=== PATIENT | female | born 1995 | race Caucasian/White ===

== ENCOUNTER 2017-10-27 10:28 | Emergency (ER) | payer OTHER ==
[2017-10-27] MEDS ORDERED: Lidocaine 1%* 5 ML VIAL INJ ONE (10:49)
[2017-10-27] MEDS ORDERED: Tetan/Diph/Pertus SYR(Tdap)* 0.5 ML SYR(BOOSTRIX) use SYR IM ONE (10:53)
--- NOTE | 2017-10-27 10:56 | UC ---
Laceration HPI - HPI Summary HPI Summary: 22-year-old female presents with laceration to her left index finger. Occurred approximately 2 hours ago while cutting a watermelon with a knife. Bleeding was controlled with direct pressure. Has full range of motion to that finger. Sensation is intact distally. Last tetanus was in 2007. - History Of Current Complaint Stated Complaint: FINGER LAC Time Seen by Provider: 10/27/17 10:40 Hx Obtained From: Patient Laceration Location: Hand - Left index finger Mechanism Of Injury: Sharp Trauma Aggravating Factors: Nothing Related History: Dominant Hand Right - Allergies/Home Medications Allergies/Adverse Reactions: Allergies Allergy/AdvReac Type Severity Reaction Status Date / Time No Known Allergies Allergy Verified 10/27/17 10:54 Home Medications: Home Medications Acyclovir* [Zovirax 200 MG CAP*] 200 mg PO BID 10/27/17 [History Confirmed 10/27] PMH/Surg Hx/FS Hx/Imm Hx - Additional Past Medical History Additional PMH: Noncontributory Previously Healthy: Yes - Surgical History Surgical History: None - Family History Family History: Noncontributory - Social History Occupation: Student Lives: Dormitory/Roommates Review of Systems Constitutional: Negative Skin: Other - See history of present illness. Motor: Negative Neurovascular: Negative Musculoskeletal: Negative Is Patient Immunocompromised?: No All Other Systems Reviewed And Are Negative: Yes Physical Exam Triage Information Reviewed: Yes Appearance: Well-Appearing, No Pain Distress, Well-Nourished Vital Signs Reviewed: Yes Respiratory: Positive: No respiratory distress Cardiovascular: Positive: Pulses Normal, Brisk Capillary Refill Musculoskeletal: Positive: Strength Intact, ROM Intact - Flexion and extension of the left index finger intact to resistance. Neurological: Positive: Alert, Other: - Sensation intact distally. Skin: Positive: significant lesion(s) - C-shaped superficial flap laceration to radial aspect of left index finger at the PIP. Laceration Repair - Laceration Repair 1 Procedure Summary: Procedure note: Laceration repair left index finger. Informed consent was obtained before the procedure started. The appropriate time out was taken. The area was prepped and draped in usual sterile fashion. Local anesthesia was achieved using 1.5 mL of lidocaine 1% without epinephrine. The wound was copiously irrigated. The wound margins were brought into alignment. A total of 7 interrupted sutures using 5-0 Ethilon were placed. Estimated blood loss was less than 1 mm. A dressing was applied to the area and anticipatory guidance as well as standard post procedure care was explained. Return precautions are given. Patient tolerated the procedure well without complications. She is to return in 10 days for evaluation and removal of the sutures. Description: Linear - C-shaped flap laceration Laceration Size After Repair: Length (cm) - 2 Type Injection: Local Anesthesia Used: 1.0% Lido - 1.5 mL Cleansing Completed Via Routine Prep: Yes Irrigation With Pressure Irrigation Device: Yes Closure Material: Sutures - 7 interrupted sutures Closure Method: Single Layer Suture Of: Skin Suture Type: Nylon - 5-0 Ethilon Laceration Course/Dx - Course/Dx Course Of Treatment: 22-year-old female presents with a C-shaped flap laceration to the radial aspect of her left index finger adjacent to the PIP. She had full flexion and extension of that finger to resistance and sensation was intact distally. Laceration was repaired with a total of 7 interrupted sutures using 5-0 Ethilon. Wound care and warning signs of infection were discussed with the patient. She verbalizes understanding. She is to return in 10 days for laceration evaluation and suture removal. - Differential Dx - Laceration/Wound Provider Diagnoses: 2 cm laceration left index finger Discharge - Sign-Out/Discharge Documenting (check all that apply): Patient Departure All imaging exams completed and their final reports reviewed: No Studies - Discharge Plan Condition: Stable Disposition: HOME Patient Education Materials: Care For Your Stitches (ED), Finger Laceration (ED ) Referrals: No Primary Care Phys,NOPCP [Primary Care Provider] - Additional Instructions: Keep current dressing in place for the next 24 hours. Avoid getting this wet. If there is bleeding through the dressing simply add some additional gauze. After 24 hours you may remove the dressing and shower and wash her hands is normal. The wound should be cleansed gently at least once a day using soap and water. Apply a small amount of antibiotic ointment and cover with a dressing. The numbing medication used to repair your wound today will wear off in about 3- 4 hours. You may use [id number] acetaminophen (Tylenol) or ibuprofen ( Advil, Motrin) according to directions as needed for pain. He should return in 10 days to have the sutures removed. Watch for signs and symptoms of infection including a fever greater than 100.5 F, pain that is not managed with [id number] pain medication, redness that spreads, swelling of the finger, loss of function of the finger, or any pus draining from the wound. You need to seek immediate medical attention should any of these things occur. - Billing Disposition and Condition Condition: STABLE Disposition: Home
== END 2017-10-27 11:45 | disposition home or self-care (01) ==
LOC: UCEAST 10:28
DX: S61.211A Laceration without foreign body of left index finger without damage to nail, initial encounter (principal); W26.0XXA Contact with knife, initial encounter; Y93.89 Activity, other specified; Y92.9 Unspecified place or not applicable
CPT/HCPCS: 12001; 90715; 99201; G0463

== ENCOUNTER 2017-11-09 18:31 | Emergency (ER) | payer OTHER ==
[2017-11-09 18:56] VITALS: BP 100/51
--- NOTE | 2017-11-09 19:35 | UC ---
HPI Wound/Suture Re-check - HPI Summary HPI Summary: 22 y/o female presents to the urgent care requesting suture removal from left index finger s/p laceration repair on 10/27/2017. Pt denies any sign of infection. Pt can move finger w/o any difficulty. Pt denies fever, SOB, chest pain, abdominal pain, N/V/D - History Of Current Complaint Chief Complaint: UCSkin Stated Complaint: SUTURE REMOVAL Time Seen by Provider: 11/09/17 19:34 Hx Obtained From: Patient Hx Last Menstrual Period: 10/18/2017 Onset/Duration: Sudden Onset, Lasting Weeks - 2 weeks, Resolved Pain Intensity: 0 Pain Scale Used: 0-10 Numeric - Allergies/Home Medications Allergies/Adverse Reactions: Allergies Allergy/AdvReac Type Severity Reaction Status Date / Time No Known Allergies Allergy Verified 10/27/17 10:54 Home Medications: Home Medications Norethindrone-E.estradiol-Iron [Tri-Legest Fe-28 Day Tablet] 11/09/17 [History] PMH/Surg Hx/FS Hx/Imm Hx Previously Healthy: Yes - Surgical History Surgical History: None Surgery Procedure, Year, and Place: wisdom teeth - Family History Family History: Noncontributory - Social History Alcohol Use: Occasionally Substance Use Type: None Smoking Status (MU): Never Smoked Tobacco Review of Systems Constitutional: Negative Skin: Other - left index finger w/ 7 sutures s/p laceration repair Eyes: Negative ENT: Negative Respiratory: Negative Cardiovascular: Negative Gastrointestinal: Negative Genitourinary: Negative Motor: Negative Neurovascular: Negative Musculoskeletal: Negative Neurological: Negative Psychological: Negative Is Patient Immunocompromised?: No All Other Systems Reviewed And Are Negative: Yes Physical Exam - Summary Physical Exam Summary: Vital Signs Reviewed: Yes General: well developed, well nourished female sitting in the examining table w/ o any apparent distress Eye Exam: Normal Eyes: Positive: Conjunctiva Clear - PERRLA, EOMI, fundi grossly normal ENT: Positive: Normal ENT inspection, Hearing grossly normal, Pharynx normal, TMs normal Neck: Positive: Supple, Nontender, No Lymphadenopathy Respiratory: Positive: Chest non-tender, Lungs clear, Normal breath sounds, No respiratory distress Cardiovascular: Positive: RRR, No Murmur, Pulses Normal, Brisk Capillary Refill Abdomen Description: Positive: Nontender, No Organomegaly, Soft. Negative: CVA Tenderness (R), CVA Tenderness (L) Bowel Sounds: Positive: Present Musculoskeletal: Positive: Strength Intact, ROM Intact, No Edema Neurological: Positive: Alert, Muscle Tone Normal Psychological Exam: Normal Skin: Positive:left index finger medial aspect w/ [address], no signs of infection. No tenderness to palpation, FROM of left index, sensation intact, capillary refill brisk, and pulses WNL. Triage Information Reviewed: Yes Vital Signs: Initial Vital Signs Temp 97.4 F 11/09/17 18:51 Pulse 58 11/09/17 18:51 Resp 16 11/09/17 18:51 BP 100/51 11/09/17 18:51 Pulse Ox 100 11/09/17 18:51 Course/Dx - Course Course Of Treatment: 22 y/o female presents to the urgent care requesting suture removal from left index finger s/p laceration repair on 10/27/2017. Pt denies any sign of infection. Pt can move finger w/o any difficulty. Pt denies fever, SOB, chest pain, abdominal pain, N/V/D. Pt w/ [address] on the medial aspect of left index, no sings of infection. FROM of finger on examination. 7 sutures removed w/o any difficulty. Pt tolerated well procedure. wound cleaned with sterile water and bacitracin applied over and cover with sterile gauze. Pt advised if redness, pain or fever develops to return to the urgent care or f/u with PCP for further treatment. Pt understood and agreed with plan of care - Differential Dx - Laceration/Wound Differential Diagnoses: Cellulitis, Healing Wound, Suture Removal Provider Diagnoses: 1- suture removal from left index finger s/p laceration repair Discharge - Sign-Out/Discharge Documenting (check all that apply): Patient Departure - D/C home All imaging exams completed and their final reports reviewed: No Studies - Discharge Plan Condition: Stable Disposition: HOME Prescriptions: Bacitracin OINTMENT* 1 applic TOPICAL BID #1 tube Patient Education Materials: Acute Wound Care (ED) Referrals: [facility] [Outside] - If Needed No Primary Care Phys,NOPCP [Primary Care Provider] - Additional Instructions: 1-Please apply topical antibiotic over the wound. Keep wound clean and dry 2-Take Ibuprofen or Tylenol PO q6-8hrs prn for pain or swelling. 3- If you develop fever or redness around your finger please return to the Urgent care for further treatment. - Billing Disposition and Condition Condition: STABLE Disposition: Home
== END 2017-11-09 19:55 | disposition home or self-care (01) ==
LOC: UCEAST 18:31
DX: S61.211D Laceration without foreign body of left index finger without damage to nail, subsequent encounter (principal); X58.XXXD Exposure to other specified factors, subsequent encounter